=== PATIENT | female | born 1965 | race Caucasian/White ===

== ENCOUNTER → 2016-04-05 18:27 | Outpatient (CLI) | payer BC ==
[~2016-04-05 18:27] MED LIST: CORGARD20 MG PO; JANTOVEN5 MG PO; OXYBUTYNIN CHLOR5 MG PO
[2016-06-10 00:58] VITALS: BMI 24.6
== END | disposition home or self-care (01) ==
LOC: D.MAMMO 14:45
DX: Z12.31 Encounter for screening mammogram for malignant neoplasm of breast (principal)

== ENCOUNTER 2016-06-09 17:42 | Inpatient (IN) | payer BC ==
[~2016-06-09] VITALS: Ht 190.5 cm; Wt 89.5 kg
[2016-06-09] MEDS ORDERED: JANTOVEN5 MG PO (18:10)
[2016-06-09] MEDS ORDERED: OXYBUTYNIN CHLOR5 MG PO (18:11)
[2016-06-09] MEDS ORDERED: CORGARD20 MG PO (18:11)
[2016-06-09 19:03] LABS: BASOPHILS 0.4 % (0-2); EOSINOPHILS 2.4 % (0-7); HEMATOCRIT 39.3 % (36.0-48.0); HEMOGLOBIN 12.4 g/dL (12-16); IMMATURE GRANULOCYTES 0.2 % (0-5); LYMPHOCYTES 13.9 % (15-50); MCH 26.8 pg (26.0-34.0); MCHC 31.6 g/dL (31.0-37.0); MCV 85.1 fL (80.0-100.0); MEAN PLATELET VOLUME 9.9 fL (7.4-10.4); MONOCYTES 8.6 % (2-11); NEUTROPHILS 74.5 % (40-80); PLATELET COUNT 317 10x3/uL (130-400); RBC 4.62 10x6/uL (4.00-5.40); RDW 15.6 % (11.5-14.5); WBC 17.4 10x3/uL (4.8-10.8)
[2016-06-09 19:14] LABS: INR 2.67 (0.85-1.17); PROTIME 28.6 SECONDS (11.6-15.0)
[2016-06-09 19:44] LABS: ALBUMIN 3.4 g/dL (3.4-5.0); ALKALINE PHOSPHATASE 120 U/L (46-116); ALT (SGPT) 19 U/L (10-68); BILIRUBIN - TOTAL 0.56 mg/dL (0.2-1.3); CALC OSMOLALITY 270 mosm/kg (275-300); CALCIUM 9.1 mg/dL (8.5-10.1); CARBON DIOXIDE 26.8 mmol/L (21.0-32.0); CHLORIDE - SERUM 100 mmol/L (98-107); CREATININE - SERUM 0.7 mg/dL (0.6-1.3); GLUCOSE 100 mg/dL (74-106); POTASSIUM - SERUM 3.9 mmol/L (3.5-5.1); SODIUM 136 mmol/L (136-145); UREA NITROGEN 10 mg/dL (7-18); eGFR NON AFRICAN AMERICAN > 90 mL/min (90-120)
[2016-06-09 20:00] VITALS: BP 128/71
--- NOTE | 2016-06-09 20:00 | NUR ---
PT HAS FREQUENT PRODUCTIVE COUGH WITH YELLOW/GREEN SPUTUM. COMPLETE ASSESSMENT PER FLOW-SHEET. IV SALINE LOCKED. DENIES PAIN. DENIES NEEDS. WILL CONTINUE TO MONITOR.
[2016-06-10] VITALS (8 sets, daily range): BP systolic 98–136; BP diastolic 55–73; Ht 190.5 cm; Wt 89.5 kg
[2016-06-10 05:52] LABS: BASOPHILS 0.3 % (0-2); EOSINOPHILS 1.3 % (0-7); HEMATOCRIT 36.3 % (36.0-48.0); HEMOGLOBIN 11.3 g/dL (12-16); IMMATURE GRANULOCYTES 0.2 % (0-5); LYMPHOCYTES 11.3 % (15-50); MCH 26.2 pg (26.0-34.0); MCHC 31.1 g/dL (31.0-37.0); MCV 84.2 fL (80.0-100.0); MEAN PLATELET VOLUME 10.2 fL (7.4-10.4); MONOCYTES 10.1 % (2-11); NEUTROPHILS 76.8 % (40-80); PLATELET COUNT 293 10x3/uL (130-400); RBC 4.31 10x6/uL (4.00-5.40); RDW 15.5 % (11.5-14.5); WBC 15.1 10x3/uL (4.8-10.8)
[2016-06-10 06:34] LABS: INR 2.89 (0.85-1.17); PROTIME 30.5 SECONDS (11.6-15.0)
[2016-06-10 06:38] LABS: ALBUMIN 2.8 g/dL (3.4-5.0); ALKALINE PHOSPHATASE 105 U/L (46-116); ALT (SGPT) 15 U/L (10-68); BILIRUBIN - TOTAL 0.64 mg/dL (0.2-1.3); CALC OSMOLALITY 271 mosm/kg (275-300); CALCIUM 8.6 mg/dL (8.5-10.1); CARBON DIOXIDE 28.6 mmol/L (21.0-32.0); CHLORIDE - SERUM 101 mmol/L (98-107); CREATININE - SERUM 0.6 mg/dL (0.6-1.3); GLUCOSE 91 mg/dL (74-106); PROTEIN - SERUM 6.9 g/dL (6.4-8.2); SODIUM 137 mmol/L (136-145); eGFR NON AFRICAN AMERICAN > 90 mL/min (90-120)
[2016-06-10 06:40] LABS: UREA NITROGEN 7 mg/dL (7-18)
--- NOTE | 2016-06-10 08:13 | NUR ---
PT SEEN. NO COMPLAINTS AT PRESENT. COUGHING UP YELLOW PHLEGM. RIGHT LUNG SOUNDS CLEAR. DIMINISHED ON LEFT SIDE. NO OXYGEN AT PRESENT. STATES NO PAIN. CALL LIGHT IN REACH
--- NOTE | 2016-06-10 13:49 | NUR ---
NO COMPLAINTS OF PAIN AT PRESNT. CONTINUES TO COUGH UP YELLOW PHLEGM. CALL LIGHT IN REACH
--- NOTE | 2016-06-10 19:25 | NUR ---
WATCHING TV, ASSESSMENT COMPLETED, NO ACUTE DISTRESS NOTED, DENIES NEEDS AT THIS TIME, SR'S UP, CL IN REACH, WILL MONITOR
--- NOTE | 2016-06-10 20:21 | NUR ---
MEDS GIVEN PER MAR, RACHELLE WELL, DENIES NEEDS AT THIS TIME, SR'S UP, CL IN REACH
--- NOTE | 2016-06-10 22:32 | NUR ---
IV AB'S HUNG, PRN TUSSONEX GIVEN FOR PERSISTENT COUGH, RACHELLE WELL, DENIES OTHER NEEDS, CL IN REACH
--- NOTE | 2016-06-10 23:02 | NUR ---
IV FLUIDS HUNG PER MAR, RACHELLE WELL, STILL EXPERIENCING PERSISTENT COUGH, NO ACUTE DISTRESS NOTED, DENIES NEEDS, CL IN REACH
--- NOTE | 2016-06-11 01:22 | NUR ---
RESTING WITH EYES CLOSED, NO DISTRESS NOTED, SR'S UP, CL IN REACH
[2016-06-11 05:32] LABS: BASOPHILS 0.3 % (0-2); EOSINOPHILS 2.5 % (0-7); HEMATOCRIT 36.5 % (36.0-48.0); HEMOGLOBIN 11.6 g/dL (12-16); IMMATURE GRANULOCYTES 0.3 % (0-5); LYMPHOCYTES 17.5 % (15-50); MCH 26.6 pg (26.0-34.0); MCHC 31.8 g/dL (31.0-37.0); MCV 83.7 fL (80.0-100.0); MEAN PLATELET VOLUME 10.2 fL (7.4-10.4); MONOCYTES 9.9 % (2-11); NEUTROPHILS 69.5 % (40-80); PLATELET COUNT 312 10x3/uL (130-400); RBC 4.36 10x6/uL (4.00-5.40); RDW 15.5 % (11.5-14.5); WBC 11.6 10x3/uL (4.8-10.8)
[2016-06-11 06:05] LABS: ALBUMIN 2.6 g/dL (3.4-5.0); ALKALINE PHOSPHATASE 102 U/L (46-116); ALT (SGPT) 16 U/L (10-68); BILIRUBIN - TOTAL 0.29 mg/dL (0.2-1.3); CALC OSMOLALITY 269 mosm/kg (275-300); CALCIUM 9.1 mg/dL (8.5-10.1); CARBON DIOXIDE 29.1 mmol/L (21.0-32.0); CHLORIDE - SERUM 102 mmol/L (98-107); CREATININE - SERUM 0.7 mg/dL (0.6-1.3); GLUCOSE 102 mg/dL (74-106); POTASSIUM - SERUM 3.8 mmol/L (3.5-5.1); PROTEIN - SERUM 7.6 g/dL (6.4-8.2); SODIUM 136 mmol/L (136-145); UREA NITROGEN 7 mg/dL (7-18); eGFR NON AFRICAN AMERICAN > 90 mL/min (90-120)
[2016-06-11 06:11] LABS: INR 2.88 (0.85-1.17); PROTIME 30.4 SECONDS (11.6-15.0)
--- NOTE | 2016-06-11 07:35 | NUR ---
PATIENT RECEIVED ALERT IN HIGH BHANDARI POSITION WATCHING TV. RESPIRATIONS EVEN AND UNLABORED. SIDE RAILS UP X2. BED IN LOW POSITION. CALL LIGHT IN REACH. DENIES NEEDS.
[2016-06-11 08:03] VITALS: BP 115/60
--- NOTE | 2016-06-11 08:17 | NUR ---
PATIENT ALERT IN HIGH BHANDARI POSITION. SCHEDULED MEDICATION ADMINISTERED. DENIES NEEDS. SIDE RAILS UP X2. BED IN LOW POSITION. CALL LIGHT IN REACH.
--- NOTE | 2016-06-11 11:53 | NUR ---
ALERT IN BED VISITING WITH FAMILY. DENIES NEEDS. SIDE RAILS UP X2. BED IN LOW POSITION. CALL LIGHT IN REACH.
[2016-06-11 12:33] VITALS: BP 130/69
--- NOTE | 2016-06-11 14:35 | NUR ---
ALERT IN HIGH BHANDARI POSITION WITH FAMILY PRESENT. NO SIGNS OF DISTRESS NOTED. DENIES NEEDS. SIDE RAILS UP X2. BED IN LOW POSITION. CALL LIGHT IN REACH.
[2016-06-11 15:34] VITALS: BP 127/68
--- NOTE | 2016-06-11 17:20 | NUR ---
PATIENT UP TO RESTROOM WITHOUT ASSIST. NO SIGNS OF DISTRESS NOTED. WILL CONTINUE TO MONITOR.
--- NOTE | 2016-06-11 19:40 | NUR ---
LYING IN BED WATCHING TV, ASSESSMENT COMPLETED, NO DISTRESS NOTED, IV INFUSING TO R HAND, WARM COMPRESS IN PLACE ON R WRIST, DENIES PAIN OR NEEDS, SR'S UP, CL IN REACH, WILL MONITOR
[2016-06-11 20:00] VITALS: BP 142/70
--- NOTE | 2016-06-11 21:01 | NUR ---
MEDS GIVEN PER MAR, RACHELLE WELL, DENIES NEEDS, CL IN REACH
--- NOTE | 2016-06-11 23:16 | NUR ---
RESTING WITH EYES CLOSED, RESP WITH EASE, NO DISTRESS NOTED, CL IN REACH
[2016-06-12 04:00] VITALS: BP 154/66
[2016-06-12 05:00] LABS: BASOPHILS 0.9 % (0-2); EOSINOPHILS 3.9 % (0-7); HEMATOCRIT 37.2 % (36.0-48.0); HEMOGLOBIN 11.8 g/dL (12-16); IMMATURE GRANULOCYTES 0.4 % (0-5); LYMPHOCYTES 15.5 % (15-50); MCH 26.5 pg (26.0-34.0); MCHC 31.7 g/dL (31.0-37.0); MCV 83.4 fL (80.0-100.0); MEAN PLATELET VOLUME 10.3 fL (7.4-10.4); MONOCYTES 9.7 % (2-11); NEUTROPHILS 69.6 % (40-80); PLATELET COUNT 339 10x3/uL (130-400); RBC 4.46 10x6/uL (4.00-5.40); RDW 15.5 % (11.5-14.5); WBC 10.5 10x3/uL (4.8-10.8)
[2016-06-12 05:26] LABS: ALBUMIN 2.5 g/dL (3.4-5.0); ALKALINE PHOSPHATASE 96 U/L (46-116); CALCIUM 8.8 mg/dL (8.5-10.1); CARBON DIOXIDE 27.2 mmol/L (21.0-32.0); CHLORIDE - SERUM 102 mmol/L (98-107); CREATININE - SERUM 0.6 mg/dL (0.6-1.3); GLUCOSE 115 mg/dL (74-106); POTASSIUM - SERUM 3.7 mmol/L (3.5-5.1); PROTEIN - SERUM 7.5 g/dL (6.4-8.2); SODIUM 138 mmol/L (136-145); eGFR NON AFRICAN AMERICAN > 90 mL/min (90-120)
[2016-06-12 05:27] LABS: ALT (SGPT) 21 U/L (10-68); CALC OSMOLALITY 273 mosm/kg (275-300); UREA NITROGEN 5 mg/dL (7-18)
[2016-06-12 06:00] LABS: INR 2.58 (0.85-1.17); PROTIME 27.9 SECONDS (11.6-15.0)
--- NOTE | 2016-06-12 06:18 | NUR ---
MEDS GIVEN PER MAR, R HAND STILL PAINFUL AND SWOLLEN, HEAT PACK PROVIDED PER ORDERS, PT REQUEST ICE PACK, IV RESITED TO R FOREARM PER PT REQUEST, 20G X 1 ATTEMPT, R HAND IV DC'D WITH CATH INTACT, RACHELLE WELL, DENIES NEEDS, CL IN REACH
[2016-06-12 07:57] VITALS: BP 137/70
--- NOTE | 2016-06-12 08:28 | NUR ---
PATIENT ALERT IN BED. SCHEDULED MEDICATION ADMINISTERED. SIDE RAILS UP X2. BED IN LOW POSITION. CALL LIGHT IN REACH. DENIES NEEDS.
--- NOTE | 2016-06-12 11:52 | NUR ---
ALERT IN BED. SCHEDULED MEDICATION ADMINISTERED. SIDE RAILS UP X2. BED IN LOW POSITION. CALL LIGHT IN REACH. DENIES NEEDS
[2016-06-12 12:41] VITALS: BP 165/67
--- NOTE | 2016-06-12 14:35 | NUR ---
ALERT IN BED WITH FAMILY PRESENT. NO SIGNS OF DISTRESS NOTED. IV TO RIGHT FOREARM PATENT. NO REDNESS OR INFLAMMATION NOTED. SCHEDULED MEDICATION ADMINISTERED. SIDE RAILS UP X2. BED IN LOW POSITION. CALL LIGHT IN REACH.
[2016-06-12 15:57] VITALS: BP 121/65
--- NOTE | 2016-06-12 19:45 | NUR ---
LYING IN BED WATCHING TV, ASSESSMENT COMPLETED, NO ACUTED DISTRESS NOTED, R HAND ELEVATED, SR'S UP, CL IN REACH, WILL MONITOR
[2016-06-12 20:00] VITALS: BP 136/61
--- NOTE | 2016-06-12 20:58 | NUR ---
MEDS GIVEN PER MAR, RACHELLE WELL, DENIES NEEDS, CL IN REACH
--- NOTE | 2016-06-12 22:51 | NUR ---
MAXIPIME HUNG PER APR, LATE DUE TO WAITING ON PREVIOUS ANTIBIOTIC TO COMPLETE, RACHELLE WELL, CL IN REACH
--- NOTE | 2016-06-13 00:01 | NUR ---
PRN TYLENOL GIVEN FOR C/O R HAND/WRIST PAIN 08/22, RACHELLE WELL, CL IN REACH
[2016-06-13 04:00] VITALS: BP 127/57
[2016-06-13 06:04] LABS: BASOPHILS 0.8 % (0-2); EOSINOPHILS 2.8 % (0-7); HEMOGLOBIN 11.9 g/dL (12-16); IMMATURE GRANULOCYTES 0.5 % (0-5); LYMPHOCYTES 21.3 % (15-50); MCH 26.3 pg (26.0-34.0); MCHC 31.3 g/dL (31.0-37.0); MCV 83.9 fL (80.0-100.0); MONOCYTES 10.2 % (2-11); NEUTROPHILS 64.4 % (40-80); PLATELET COUNT 364 10x3/uL (130-400); RBC 4.53 10x6/uL (4.00-5.40); RDW 15.3 % (11.5-14.5); WBC 8.8 10x3/uL (4.8-10.8)
[2016-06-13 06:33] LABS: PROTIME 33.2 SECONDS (11.6-15.0)
[2016-06-13 06:34] LABS: INR 3.21 (0.85-1.17)
[2016-06-13 06:52] LABS: ALBUMIN 2.5 g/dL (3.4-5.0); ALKALINE PHOSPHATASE 101 U/L (46-116); ALT (SGPT) 19 U/L (10-68); BILIRUBIN - TOTAL 0.25 mg/dL (0.2-1.3); CALC OSMOLALITY 278 mosm/kg (275-300); CARBON DIOXIDE 30.1 mmol/L (21.0-32.0); CHLORIDE - SERUM 105 mmol/L (98-107); CREATININE - SERUM 0.6 mg/dL (0.6-1.3); GLUCOSE 106 mg/dL (74-106); POTASSIUM - SERUM 3.7 mmol/L (3.5-5.1); PROTEIN - SERUM 7.7 g/dL (6.4-8.2); SODIUM 141 mmol/L (136-145); UREA NITROGEN 6 mg/dL (7-18); eGFR NON AFRICAN AMERICAN > 90 mL/min (90-120)
--- NOTE | 2016-06-13 07:00 | NUR ---
PATIENT RECEIVED ALERT IN HIGH BHANDARI POSITION WATCHING TV. RESPIRATIONS EVEN AND UNLABORED. DENIES NEEDS. SIDE RAILS UP X2. BED IN LOW POSITION. CALL LIGHT IN REACH.
[2016-06-13 07:54] VITALS: BP 148/71
[2016-06-13 08:10] LABS: IMMUNOGLOBULIN A 487 mg/dL (87-352); IMMUNOGLOBULIN G 1537 mg/dL (700-1600); IMMUNOGLOBULIN M 115 mg/dL (26-217)
--- NOTE | 2016-06-13 08:37 | NUR ---
PATIENT ALERT IN BED. NO SIGNS OF DISTRESS NOTED. SCHEDULED MEDICATION ADMINISTERED. SIDE RAILS UP X2. BED IN LOW POSITION. CALL LIGHT IN REACH.
[2016-06-13 11:26] VITALS: BP 156/72
--- NOTE | 2016-06-13 12:10 | NUR ---
ALERT IN BED. NO SIGNS OF DISTRESS NOTED. WARM PACK APPLIED TO RIGHT WRIST. DENIES NEEDS. SIDE RAILS UP X2. BED IN LOW POSITION. CALL LIGHT IN REACH.
[2016-06-13 12:12] LABS: IMMUNOGLOBULIN E 105 IU/mL (0-100)
--- NOTE | 2016-06-13 15:00 | NUR ---
IV TO RIGHT FOREARM LEAKING. IV D/C WITH CATH TIP INTACT. SITE COVERED WITH GAUZE AND BANDAID. NEW 22 GAUGE IV SITED TO LEFT FOREARM X1 ATTEMPT. FLUSHES EASY WITH BRISK BLOOD RETURN PRESENT. WELL TOLERATED.
[2016-06-13 15:41] VITALS: BP 143/72
--- NOTE | 2016-06-13 16:48 | NUR ---
Patient Name: ROBERT AYALA Admission Status: Elective Accout number: [id number] Admission Date: 06-09-2016 : 1965 Admission Diagnosis:LOBAR PNEUMONIA, UNSPECIFIED ORGANISM Attending: MICKEY Current LOS: 4 Anticipated DC Date: 06-15-2016 Planned Disposition: Home Primary Insurance: [employer] OUT OF [facility] Discharge Planning Comments: CM MET WITH PATIENT REGARDING D/C NEEDS AND PLANS. PATIENT STATED SHE LIVES WITH HER SPOUSE (DERICK) AND THEY HAVE NO STEPS OR STAIRS AT THEIR HOME. PATIENT WANTS TO DRIVE HERSELF HOME AT DISCHARGE. PATIENTS SPOUSE WILL PICK HER UP IF SHE CAN'T DRIVE HERSELF. PATIENT IS INDEPENDENT WITH HER CARE AND HAS NO DME AT HOME. PATIENTS PCP IS DR. SYED AND USES [facility] ON [address] PATIENT REFUSED HOME HEALTH AT DISCHARGE. CM WILL CONTINUE TO FOLLOW PATIENT WITH D/C NEEDS AND PLANS. PCP [facility] [address] [phone] DERICK (SPOUSE) [phone] Designated Broker: Mona Spangler Is the patient Alert and Oriented? Yes 0 * How many steps to enter\exit or inside your home? 0 0 * PCP DR. SYED 0 * Pharmacy [facility] [address] 0 * Preadmission Environment Home with Family 0 * ADLs Independent 0 * Equipment None 0 * List name and contact numbers for known caregivers / representatives who currently or will assist patient after discharge: DERICK AYALA (SPOUSE) [phone] 0 * Community resources currently utilized None 0 * Additional services required to return to the preadmission environment? Yes 0 * Can the patient safely return to the preadmission environment? Yes 0 * Has this patient been hospitalized within the prior 30 days at any hospital? No 0 Grand Total: 0
--- NOTE | 2016-06-13 18:00 | NUR ---
ALERT IN BED TALKING ON PHONE. NO SIGNS OF DISTRESS NOTED. BED IN LOW POSITION. CALL LIGHT IN REACH.
--- NOTE | 2016-06-13 19:35 | NUR ---
ASSESSMENT COMPLETED, C/O R HAND/WRIST PAIN, WILL TREAT PER ORDERS, DENIES OTHER NEEDS, CL IN REACH
--- NOTE | 2016-06-13 19:38 | NUR ---
PRN TYLENOL GIVEN FOR C/O HAND/WRIST PAIN, RACHELLE WELL, CL IN REACH
[2016-06-13 20:00] VITALS: BP 142/65
--- NOTE | 2016-06-13 20:51 | NUR ---
MEDS GIVEN PER MAR, RACHELLE WELL, DENIES NEEDS AT THIS TIME, CL IN REACH
--- NOTE | 2016-06-13 23:50 | NUR ---
RESTING WITH EYES CLOSED, RESP WITH EASE, NO DISTRESS NOTED, CL IN REACH
[2016-06-14] VITALS: BP 142/67
[2016-06-14 05:37] LABS: BASOPHILS 1.1 % (0-2); HEMATOCRIT 36.5 % (36.0-48.0); HEMOGLOBIN 11.5 g/dL (12-16); IMMATURE GRANULOCYTES 0.8 % (0-5); LYMPHOCYTES 26.5 % (15-50); MCH 26.6 pg (26.0-34.0); MCHC 31.5 g/dL (31.0-37.0); MCV 84.3 fL (80.0-100.0); MEAN PLATELET VOLUME 9.9 fL (7.4-10.4); MONOCYTES 10.7 % (2-11); NEUTROPHILS 56.9 % (40-80); PLATELET COUNT 371 10x3/uL (130-400); RBC 4.33 10x6/uL (4.00-5.40); RDW 15.1 % (11.5-14.5); WBC 7.5 10x3/uL (4.8-10.8)
[2016-06-14 06:02] LABS: INR 3.16 (0.85-1.17); PROTIME 32.7 SECONDS (11.6-15.0)
[2016-06-14 06:08] LABS: ALBUMIN 2.5 g/dL (3.4-5.0); ALKALINE PHOSPHATASE 93 U/L (46-116); ALT (SGPT) 16 U/L (10-68); BILIRUBIN - TOTAL 0.18 mg/dL (0.2-1.3); CALC OSMOLALITY 280 mosm/kg (275-300); CALCIUM 8.9 mg/dL (8.5-10.1); CARBON DIOXIDE 30.7 mmol/L (21.0-32.0); CHLORIDE - SERUM 106 mmol/L (98-107); CREATININE - SERUM 0.7 mg/dL (0.6-1.3); GLUCOSE 104 mg/dL (74-106); POTASSIUM - SERUM 3.4 mmol/L (3.5-5.1); PROTEIN - SERUM 7.3 g/dL (6.4-8.2); SODIUM 142 mmol/L (136-145); UREA NITROGEN 7 mg/dL (7-18); eGFR NON AFRICAN AMERICAN > 90 mL/min (90-120)
[2016-06-14 08:07] VITALS: BP 147/77
--- NOTE | 2016-06-14 09:58 | NUR ---
PT SEEN AND ASSESSED. NO COMPLAINTS AT PRESENT. STATES COUGHING BUT NOT PRODUCTIVE THIS AM. RIGHT LUNG SOUNDS CLEAR ALL LOBES AND LEFT DIMINISHED. RIGHT WRIST/HAND AREA STILL SWOLLEN BUT DECREASED FROM YESTERDAY. CALL LIGHT IN REACH
--- NOTE | 2016-06-14 12:00 | NUR ---
PT PLACED IN DROPLET ISOLATION TO R/O MRSA
[2016-06-14 12:47] VITALS: BP 150/69
--- NOTE | 2016-06-14 15:01 | NUR ---
PATIENT IS RESTING QUIETLY WITH EYES CLOSED. DID NOT AWAKEN TO MY ENTRY, DID NOT DISTURB, RESPIRATIONS DEEP AND EVEN.
--- NOTE | 2016-06-14 15:02 | NUR ---
PATIENT IS RESTING QUIETLY WITH EYES CLOSED. NO EVIDENCE OF DISTRESS, RESPIRATIONS DEEP AND EVEN. SHE IS FULLY DRESSED WITH LEFT ARM IN A SLING. CALL LIGHT IS WITHIN HER REACH. AWAITING TRANSPORTATION FROM [facility].
[2016-06-14 16:27] VITALS: BP 165/77
--- NOTE | 2016-06-14 19:35 | NUR ---
RECIEVED SHIFT REPORT. PT IS LYING IN BED. ALERT AND ORIENTED AND ABLE TO VERBALIZE NEEDS. IV IS PATENT AND FLUIDS ARE RUNNING PER ORDER. PT IS AMBULATORY BUT WAS INSTRUCTED TO CALL FOR ANY ASSISTANCE NEEDED. ISOLATION PRECAUTIONS IN PLACE. PT DENIES ANY PAIN AT THIS TIME. NO NEEDS ARE VERBALIZED AT THIS TIME. WILL CONTINUE TO MONITOR. SIDE RAILS ARE UP X 2. BED IS IN LOWEST POSITION. CALL LIGHT IS WITHIN REACH.
--- NOTE | 2016-06-14 21:15 | NUR ---
SHIFT ASSESSMENT COMPLETED. NIGHT MEDS GIVEN WITH NO PROBLEMS. PT IV TO LEFT FOREARM INFILTRATED. NEW IV SITED TO DIFFERENT PART OF LEFT FOREARM X 1 ATTEMP. 20G. GOOD BLOOD RETURN. FLUSHES W/O DIFFICULTY. FLUIDS AND ANTIBIOTICS HUNG PER ORDER. PT TOLERATED WELL. DENIES NEEDS. WILL MONITOR. SIDE RAILS X 2. BED LOW. CALL LIGHT IN REACH.
[2016-06-15 04:00] VITALS: BP 135/76
[2016-06-15 06:12] LABS: BASOPHILS 1.2 % (0-2); EOSINOPHILS 4.5 % (0-7); HEMATOCRIT 37.2 % (36.0-48.0); HEMOGLOBIN 11.6 g/dL (12-16); IMMATURE GRANULOCYTES 0.8 % (0-5); LYMPHOCYTES 27.9 % (15-50); MCH 26.1 pg (26.0-34.0); MCHC 31.2 g/dL (31.0-37.0); MCV 83.8 fL (80.0-100.0); MEAN PLATELET VOLUME 9.8 fL (7.4-10.4); NEUTROPHILS 55.6 % (40-80); PLATELET COUNT 402 10x3/uL (130-400); RBC 4.44 10x6/uL (4.00-5.40); RDW 15.2 % (11.5-14.5); WBC 8.5 10x3/uL (4.8-10.8)
[2016-06-15 06:33] LABS: ALBUMIN 2.5 g/dL (3.4-5.0); ALKALINE PHOSPHATASE 93 U/L (46-116); ALT (SGPT) 19 U/L (10-68); CALC OSMOLALITY 277 mosm/kg (275-300); CARBON DIOXIDE 30.3 mmol/L (21.0-32.0); CHLORIDE - SERUM 104 mmol/L (98-107); CREATININE - SERUM 0.7 mg/dL (0.6-1.3); GLUCOSE 103 mg/dL (74-106); POTASSIUM - SERUM 3.9 mmol/L (3.5-5.1); PROTEIN - SERUM 7.4 g/dL (6.4-8.2); SODIUM 140 mmol/L (136-145); eGFR NON AFRICAN AMERICAN > 90 mL/min (90-120)
[2016-06-15 06:34] LABS: UREA NITROGEN 9 mg/dL (7-18)
[2016-06-15 07:12] LABS: INR 3.19 (0.85-1.17)
--- NOTE | 2016-06-15 08:12 | NUR ---
AWAKE AND ALERT. ORIENTED X3. NO C/O AT THIS TIME. LUNGS WITH CRACKLES IN BILATERALLY LOWER LOBES, OCCASSIONAL PRODUCTIVE COUGH NOTED. SKIN IS INTACAT WITHOUT REDNESS EXCEPT SOME SWELLING STILL NOTED TO RIGHT HAND. IV TO LEFT FOREARM IS PATNE TWITHOUT REDNESS AT INSERTION SITE. DENIES NEEDS.
[2016-06-15 08:57] VITALS: BP 155/71
--- NOTE | 2016-06-15 09:55 | NUR ---
RESTING QUIETLY IN BED. DENIES NEEDS.
--- NOTE | 2016-06-15 09:59 | NUR ---
CM REASSESSMENT NOTE: PATIENT IS DISCHARGING HOME TODAY. PATIENT REF. HOME HEALTH AND DID NOT HAVE ANY OTHER NEEDS FOR DISCHARGE. PATIENT IS DRIVING HERSELF HOME - STATED HER SPOUSE DOES NOT GET OFF UNTIL 8 PM TONIGHT.
[2016-06-15] MEDS ORDERED: SINGULAIR10 MG PO (11:00)
[2016-06-15] MEDS ORDERED: BENZONATATE200 MG PO (11:00)
[2016-06-15] MEDS ORDERED: FLUTICASONE PRO16 GM NASAL (11:00)
[2016-06-15] MEDS ORDERED: MUCINEX DM ER1 EAC1 PO (11:00)
[2016-06-15] MEDS ORDERED: FLORAJEN3 CAPS460 MG PO (11:01)
[2016-06-15] MEDS ORDERED: IPRAT-ALBUT 0.5-3 ML UPD (11:03)
[2016-06-15] MEDS ORDERED: VIBRAMYCIN 100100 MG PO (11:04)
[2016-06-15 12:00] VITALS: BP 141/64
--- NOTE | 2016-06-15 15:00 | NUR ---
CM REASSESSMENT NOTE: PATIENT WILL ANALYTICAL LAB ANALYST HER NEBULIZER TODAY AT DISCHARGE.
--- NOTE | 2016-06-15 15:28 | NUR ---
DISCHARGED TO HOME AMBULATORY PER SELF. DISCHARGE INSTRUCTIONS GIVEN BOTH VERBALLY AND WRITTEN. ALL QUESTIONS ANSWERED. PATIENT VERBALIZED UNDERSTANDING OF SAME. SL TO LEFT FOREARM D/C WITH CATHETER INTACT.
== END 2016-06-15 15:30 | disposition home or self-care (01) | DRG 178 ==
LOC: D.MS 17:42
PROVIDERS: Emergency Medicine; Family Medicine; Internal Medicine Pulmonary Disease; ADMIT Family Medicine Adult Medicine
DX: J15.212 Pneumonia due to Methicillin resistant Staphylococcus aureus (principal); Q87.40 Marfan syndrome, unspecified; J47.1 Bronchiectasis with (acute) exacerbation; R09.02 Hypoxemia; Z95.2 Presence of prosthetic heart valve; Z79.01 Long term (current) use of anticoagulants; Z87.891 Personal history of nicotine dependence

== ENCOUNTER 2017-04-05 19:05 | Emergency (ER) | payer BC ==
[2016-06-10 00:58] VITALS: BMI 24.6
[~2017-04-05 19:05] MED LIST changes: +BENZONATATE200 MG PO; +FLORAJEN3 CAPS460 MG PO; +FLUTICASONE PRO16 GM NASAL; +IPRAT-ALBUT 0.5-3 ML UPD; +MUCINEX DM ER1 EAC1 PO; +SINGULAIR10 MG PO; +VIBRAMYCIN 100100 MG PO
[2017-04-05 20:19] LABS: APPEARANCE CLEAR (CLEAR); BILIRUBIN NEGATIVE (NEGATIVE); COLOR YELLOW (YELLOW); GLUCOSE NEGATIVE (NEGATIVE); KETONE NEGATIVE (NEGATIVE); NITRITE NEGATIVE (NEGATIVE); PROTEIN NEGATIVE (NEGATIVE); SPECIFIC GRAVITY 1.015 (1.005-1.020); UROBILINOGEN NORMAL (NORMAL)
== END 2017-04-05 21:58 | disposition home or self-care (01) ==
LOC: D.ER 19:05
PROVIDERS: Family Medicine
DX: S39.012A Strain of muscle, fascia and tendon of lower back, initial encounter (principal); X58.XXXA Exposure to other specified factors, initial encounter; Y93.89 Activity, other specified; Y92.89 Other specified places as the place of occurrence of the external cause; Z95.0 Presence of cardiac pacemaker; Z95.2 Presence of prosthetic heart valve; Z79.01 Long term (current) use of anticoagulants

== ENCOUNTER → 2019-02-28 20:26 | Outpatient (CLI) | payer BC ==
[2016-06-10 00:58] VITALS: BMI 24.6
== END | disposition home or self-care (01) ==
LOC: D.MAMMO 12-14 15:00
PROVIDERS: ATTEND Family Medicine Adult Medicine
DX: Z12.31 Encounter for screening mammogram for malignant neoplasm of breast (principal)

== ENCOUNTER 2019-04-08 08:00 | Outpatient (CLI) | payer BC ==
[2016-06-10 00:58] VITALS: BMI 24.6
== END 2019-04-08 23:59 | disposition home or self-care (01) ==
LOC: D.MAMMO 08:00
PROVIDERS: ATTEND Family Medicine Adult Medicine
DX: R92.8 Other abnormal and inconclusive findings on diagnostic imaging of breast (principal)

== ENCOUNTER 2020-08-12 15:00 | Outpatient (CLI) | payer BC ==
[2019-12-08 11:56] VITALS: BMI 24.6
== END 2020-08-12 23:59 | disposition home or self-care (01) ==
LOC: D.MAMMO 15:00
PROVIDERS: ATTEND Nurse Practitioner Family
DX: Z12.31 Encounter for screening mammogram for malignant neoplasm of breast (principal)